=== PATIENT | female | born 1990 | race Hispanic/Latino ===

== ENCOUNTER 2017-09-01 16:44 | Emergency (ER) | payer SELFPAY ==
[2017-09-01 19:44] LABS: Bilirubin Negative (Negative); Blood, Urine Negative (Negative); Glucose, Urine (Dipstick) Negative (Negative); Ketone, Urine Negative (Negative); Nitrite Negative (Negative); Protein, Urine (Dipstick) Negative (Neg-Trace); Urobilinogen 0.2 mg/dL (0.2-1.0)
--- NOTE | 2017-09-01 21:29 | ULT ---
PELVIC ULTRASOUND INCLUDING TRANSVAGINAL AND VASCULAR DUPLEX WITH COLOR AND SPECTRAL DOPPLER IMAGING : 09/01/17 No transabdominal imaging was performed. HISTORY: Vaginal bleeding with history of a positive test. There is a very thickened echogenic endometrium with some subtle hypodensities within the endometriu m possibly small gestational sac although it does not have a normal appearance certainly. There is r ight ovarian cyst up to 2 x 3 cm. No abscess or abnormal fluid collection. There do appear to be hazel e dilated uterine vessels including within the endometrium. Unremarkable left ovary. IMPRESSION: Very thickened echogenic endometrium with questionable uterine fundal gestational sac and a possible small amount of fluid adjacent to the sac. Followup with serial HCGs is recommended. If the pregnan cy viability is still in doubt within a week or so, a followup pelvic ultrasound might be considered . A right ovarian cyst. No evidence for an overt extrauterine . POS: [facility]
== END 2017-09-01 21:05 | disposition home or self-care (01) ==
LOC: ERS 16:44
DX: N93.9 Abnormal uterine and vaginal bleeding, unspecified (principal)
CPT/HCPCS: 36415; 76856; 81003; 84702; 86900; 86901

== ENCOUNTER 2017-09-06 17:08 | Emergency (ER) | payer SELFPAY | END 2017-09-06 18:42 | disposition home or self-care (01) | LOC: ERS 17:08 | DX: Z32.00 Encounter for pregnancy test, result unknown (principal) | CPT/HCPCS: 36415; 84702; 99284 ==

== ENCOUNTER 2018-05-29 08:42 | Emergency (ER) | payer OTHER, SELFPAY ==
[2018-05-29 09:40] LABS: #Basophils 0.1 thou/uL (0.0-0.2); #Eosinphils 0.1 thou/uL (0.0-0.7); #Lymphocytes 1.5 thou/uL (1.20-3.40); #Monocytes 0.4 thou/uL (0.11-0.59); #Neutrophils 7.9 thou/uL (1.40-6.50); %Basophils 1.1 % (0.0-1.0); %Eosinophils 0.9 % (0.0-10.0); %Lymphocytes 15.2 % (21.0-51.0); %Monocytes 4.2 % (0.0-10.0); %Neutrophils 78.7 % (42.0-75.0); Hemoglobin 10.8 g/dL (12.0-16.0); Mean Corpuscular HGB CONC 33.7 g/dL (32.0-36.0); Mean Corpuscular Hemoglobin 28.1 pg (27.0-31.0); Mean Corpuscular Volume 83.3 fL (78.0-98.0); Mean Platelet Volume 7.6 fL (7.4-10.4); Platelet Count 278 thou/uL (130-400); RBC Distribution Width 12.5 % (11.5-14.5); Red Blood Cell (RBC) Count 3.83 mill/uL (4.20-5.40)
[2018-05-29 09:56] LABS: Bilirubin Negative (Negative); Blood, Urine Negative (Negative); Glucose, Urine (Dipstick) 100 mg/dL (Negative); Leukocyte Negative (Negative); Nitrite Negative (Negative); Protein, Urine (Dipstick) Trace mg/dL (Neg-Trace); Specific Gravity, Urine 1.025 (1.005-1.030); Urobilinogen 0.2 mg/dL (0.2-1.0)
[2018-05-29 09:57] LABS: Clarity Clear (Clear)
[2018-05-29 10:03] LABS: Anion Gap 17 mmol/L (10-20); BUN (Urea Nitrogen) 8 mg/dL (7.0-18.7); Calc. Creatinine Clearance 0 mL/min (70-130); Calcium 9.8 mg/dL (7.8-10.44); Carbon Dioxide 19 mmol/L (22-29); Chloride 105 mmol/L (98-107); Estimated GFR-MDRD Greater than 90; Glucose 167 mg/dL (70-105); Lipase 26 U/L (8-78); Potassium 3.9 mmol/L (3.5-5.1); Sodium 137 mmol/L (136-145)
[2018-05-29 10:31] LABS: ALT (SGPT) 21 U/L (8-55); AST (SGOT) 26 U/L (5-34); Albumin 3.9 g/dL (3.5-5.0); Alkaline Phosphatase 128 U/L (40-150); Bilirubin, Direct 0.1 mg/dL (0.1-0.3); Bilirubin, Total 0.3 mg/dL (0.2-1.2)
[2018-05-29] MEDS ORDERED: diphenhydrAMINE 50 MG/ML VIAL ONE (10:41)
[2018-05-29] MEDS ORDERED: Metoclopramide HCl 10 MG/2 ML VIAL ONE (10:41)
[2018-05-29] MEDS ORDERED: Acetaminophen 500 MG TAB ONE (10:42)
[2018-05-29] MEDS ORDERED: Butorphanol Tartrate 1 MG/ML VIAL SLOW IVP SCH (15:30)
== END 2018-05-29 16:08 | disposition home or self-care (01) ==
LOC: ERS 08:42
DX: O21.2 Late vomiting of pregnancy (principal); O99.89 Other specified diseases and conditions complicating pregnancy, childbirth and the puerperium; R51 Headache; R19.7 Diarrhea, unspecified; Z3A.31 31 weeks gestation of pregnancy
CPT/HCPCS: 80048; 80076; 81003; 83690; 85025; 96361; 96374; 96375; J0595; J1200; J2765

== ENCOUNTER 2022-09-01 15:03 | Emergency (ER) | payer OTHER, SELFPAY | END 2022-09-01 17:42 | disposition home or self-care (01) | LOC: ERS 15:03 | DX: S93.401A Sprain of unspecified ligament of right ankle, initial encounter (principal); W10.9XXA Fall (on) (from) unspecified stairs and steps, initial encounter ==